=== PATIENT | male | born 1985 | race African-American/Black ===

== ENCOUNTER 2021-04-17 16:10 | Emergency (ER) | payer BC, OTHER ==
[2021-04-17 16:29] VITALS: BP 160/96; PULSE 85; TEMP 98; BMI 34.0
[2021-04-17] MEDS ORDERED: FLUORESCEIN NA 1 EA STRIP ONE (17:53)
[2021-04-17] MEDS ORDERED: ERYTHROMYCIN 0.5% OPHTHALMIC OINTMENT 3.5 GM TUBE ONE (17:54)
[2021-04-17] MEDS ORDERED: TETRACAINE 0.5% OPHTH SOLN 2 ML BOTTLE ONE (17:54)
== END 2021-04-17 18:14 ==
LOC: JERFT 16:10
DX: H57.12 Ocular pain, left eye (principal)
CPT/HCPCS: 99283-25